=== PATIENT | female | born 1990 | race African-American/Black ===

== ENCOUNTER 2022-06-30 09:54 | Emergency (ER) | payer BC, OTHER ==
[~2022-06-30] VITALS: Ht 157 cm; Wt 77.1 kg
[2022-06-30 10:40] LABS: BASOPHILS % (AUTO) 0 % (0-10); EOSINOPHILS % (AUTO) 0 % (0-10); HEMATOCRIT 36 % (35-52); HEMOGLOBIN 11.2 g/dL (11.5-16.0); LYMPHOCYTES % (AUTO) 32 % (12-44); MEAN CORPUSCULAR HEMOGLOBIN 23 pg (25-34); MEAN CORPUSCULAR HGB CONC 31 g/dL (32-36); MEAN CORPUSCULAR VOLUME 75 fL (80-99); MEAN PLATELET VOLUME 9.4 fL (9.0-12.2); MONOCYTES # (AUTO) 0.3 10^3/uL (0.0-1.0); MONOCYTES % (AUTO) 5 % (0-12); NEUTROPHILS % (AUTO) 63 % (42-75); PLATELET COUNT 342 10^3/uL (130-400); WHITE BLOOD COUNT 6.3 10^3/uL (4.3-11.0)
[2022-06-30 10:54] LABS: ALBUMIN 4.1 GM/DL (3.2-4.5); POTASSIUM 3.7 MMOL/L (3.6-5.0)
[2022-06-30 10:55] LABS: CALCIUM 8.8 MG/DL (8.5-10.1)
[2022-06-30 10:57] LABS: TOTAL PROTEIN 8.7 GM/DL (6.4-8.2)
[2022-06-30 10:59] LABS: BILIRUBIN,TOTAL 0.7 MG/DL (0.1-1.0)
[2022-06-30 11:01] LABS: CREATININE SERUM 0.87 MG/DL (0.60-1.30)
[2022-06-30 11:03] LABS: MAGNESIUM 1.8 MG/DL (1.6-2.4)
--- NOTE | 2022-06-30 11:11 | ED General ---
General Chief Complaint: Abdominal/GI Problems Stated Complaint: NAUSEA/WEAKNESS/SWEATING/SHAKEY Nursing Triage Note: PT REPORTS SHE RECENTLY WENT THROUGH A ENGAGEMENT ENDING AND STARTED DRINKING HEAVILY. PT STATES SHE HAS BEEN DRINKING 8 SHOTS DAILY FOR THE PAST FEW DAYS. PT STATES SHE IS FEELING NAUSEATED, COLD/HOT SWEATS, AND HAVING MUSCLE SPASMS. Source of Information: Patient Exam Limitations: No Limitations (OSBALDO GOSS MED STUDENT) History of Present Illness Date Seen by Provider: Jun 30, 2022 Time Seen by Provider: 11:02 Initial Comments Santy Miller is a 31 yo female who presents for ETOH withdrawal symptoms. Pt has hx of anxiety and ETOH abuse with rehab several years ago. Pt reports she just recently broke off her engagement with her fiance in [place] and moved back here to [place] with her mother last night. Pt reports she has a hx of ETOH and was in rehab with remission. Her fiance began drinking ETOH and this triggered her to drink over the last week. Her stress level is very high with the loss of this relationship and financial struggles. Pt reports for the last week she has been drinking around 8 shots per day. Last drink was around 1400 yesterday. For the last couple of days she has been having nausea, vomiting, sweating and shaking. She also reports muscle cramps/spasms throughout her body, with sustained contraction in her hands following spasm. She feels like she is dehydrated because she has not been able to keep solids or liquids down d/t nausea. Pt denies fever, chills, JUAREZ, blurry vision, blood in stools or vomit, coffee ground emesis. Pt is very willing and motivated to get sober and wants to seek help. She is going to reach out to her former AA sponsor and seek mental health and addiction treatment at [facility]. Timing/Duration: 2-3 Days Associated Systoms: Loss of Appetite, Malaise, Nausea/Vomiting (OSBALDO GOSS MED STUDENT) Allergies and Home Medications Allergies Coded Allergies: No Known Drug Allergies (Unverified , 06/30/22) Patient Home Medication List Home Medication List Reviewed: Yes (LALITHA MARIA MD) Review of Systems Review of Systems Constitutional: No chills, No fever EENTM: No blurred vision, No vision loss Respiratory: No cough, No short of breath Gastrointestinal: abdominal pain (epigastric ); No constipation, No diarrhea; nausea, vomiting Genitourinary: No dysuria, No frequency Musculoskeletal: muscle cramps; No muscle weakness Skin: No lesions, No lumps, No rash Psychiatric/Neurological: Anxiety, Depressed, Emotional Problems; Denies Headache, Denies Numbness, Denies Tingling Hematologic/Lymphatic: No Symptoms Reported Immunological/Allergic: no symptoms reported (OSBALDO GOSS [employer] DENNY) Past Ljznfmf-Igipbf-Eiranp Hx Patient Social History Tobacco Use?: No Substance use?: No Alcohol Use?: Yes Alcohol type: Hard Liquor Alcohol Frequency: Daily Pt feels they are or have been: No (OSBALDO GOSS [employer] STUDENT) Past Medical History Surgery/Hospitalization HX: pmh: pcos (OSBALDO GOSS [employer] DENNY) Physical Exam Vital Signs Vital Signs - First Documented 06/30/22 10:10 Temp 35.9 Pulse 114 Resp 16 B/P (MAP) 156/96 (116) Pulse Ox 100 (LALITHA MARIA MD) Vital Signs Capillary Refill : Less Than 3 Seconds (OSBALDO GOSS [employer] STUDENT) Height, Weight, BMI Height: '" Weight: lbs. oz. kg; 31.00 BMI Method: General Appearance: WD/WN Eyes: Bilateral Eye Normal Inspection, Bilateral Eye PERRL, Bilateral Eye EOMI HEENT: PERRL/EOMI, Other (Dry mucous membranes) Neck: Full Range of Motion, Normal Inspection, Non Tender Respiratory: Chest Non Tender, Lungs Clear, Normal Breath Sounds Cardiovascular: No Murmur, Tachycardia Gastrointestinal: Normal Bowel Sounds, Tenderness (epigastric) Extremity: Non Tender, No Pedal Edema Neurologic/Psychiatric: Alert, Oriented x3, No Motor/Sensory Deficits, Dep ressed Affect Skin: Normal Color, Warm/Dry Lymphatic: No Adenopathy (OSBALDO GOSS [employer] STUDENT) Progress/Results/Core Measures Suspected Sepsis SIRS Temperature: Pulse: 114 Respiratory Rate: 16 Laboratory Tests 06/30/22 10:32: White Blood Count 6.3 Blood Pressure 156 /96 Mean: 116 Laboratory Tests 06/30/22 10:32: Creatinine 0.87, Platelet Count 342, Total Bilirubin 0.7 (OSBALDO GOSS [employer] STUDENT) Results/Orders Lab Results Laboratory Tests Test 06/30/22 10:32 Range/Units White Blood Count 6.3 4.3-11.0 10^3/uL Red Blood Count 4.79 3.80-5.11 10^6/uL Hemoglobin 11.2 L 11.5-16.0 g/dL Hematocrit 36 35-52 % Mean Corpuscular Volume 75 L 80-99 fL Mean Corpuscular Hemoglobin 23 L 25-34 pg Mean Corpuscular Hemoglobin Concent 31 L 32-36 g/dL Red Cell Distribution Width 19.3 H 10.0-14.5 % Platelet Count 342 130-400 10^3/uL Mean Platelet Volume 9.4 9.0-12.2 fL Immature Granulocyte % (Auto) 0 % Neutrophils (%) (Auto) 63 42-75 % Lymphocytes (%) (Auto) 32 12-44 % Monocytes (%) (Auto) 5 0-12 % Eosinophils (%) (Auto) 0 0-10 % Basophils (%) (Auto) 0 0-10 % Neutrophils # (Auto) 4.0 1.8-7.8 10^3/uL Lymphocytes # (Auto) 2.0 1.0-4.0 10^3/uL Monocytes # (Auto) 0.3 0.0-1.0 10^3/uL Eosinophils # (Auto) 0.0 0.0-0.3 10^3/uL Basophils # (Auto) 0.0 0.0-0.1 10^3/uL Immature Granulocyte # (Auto) 0.0 0.0-0.1 10^3/uL Sodium Level 138 135-145 MMOL/L Potassium Level 3.7 3.6-5.0 MMOL/L Chloride Level 101 98-107 MMOL/L Carbon Dioxide Level 16 L 21-32 MMOL/L Anion Gap 21 H 5-14 MMOL/L Blood Urea Nitrogen 4 L 7-18 MG/DL Creatinine 0.87 0.60-1.30 MG/DL Estimat Glomerular Filtration Rate 92 BUN/Creatinine Ratio 5 Glucose Level 101 70-105 MG/DL Calcium Level 8.8 8.5-10.1 MG/DL Corrected Calcium 8.7 8.5-10.1 MG/DL Magnesium Level 1.8 1.6-2.4 MG/DL Total Bilirubin 0.7 0.1-1.0 MG/DL Aspartate Amino Transf (AST/SGOT) 40 H 5-34 U/L Alanine Aminotransferase (ALT/SGPT) 37 0-55 U/L Alkaline Phosphatase 58 40-136 U/L Total Protein 8.7 H 6.4-8.2 GM/DL Albumin 4.1 3.2-4.5 GM/DL Lipase 29 8-78 U/L Serum Test, Qualitative NEGATIVE NEGATIVE Serum Alcohol 122 H <10 MG/DL (LALITHA MARIA MD) My Orders Orders - LALITHA MARIA MD Ed Iv/Invasive Line Start (06/30/22 10:23) Cbc With Automated Diff (06/30/22 10:23) Comprehensive Metabolic Panel (06/30/22 10:23) Lipase (06/30/22 10:23) Hcg,Qualitative Serum (06/30/22 10:23) Magnesium (06/30/22 10:23) Alcohol (06/30/22 10:24) Ondansetron Injection (Zofran Injectio (06/30/22 11:15) Pantoprazole Injection (Protonix Injecti (06/30/22 11:15) Lorazepam Tablet (Ativan Tablet) (06/30/22 11:15) Lactated Ringers (Lr 1000 Ml Iv Solution (06/30/22 12:00) Lactated Ringers (Lr 1000 Ml Iv Solution (06/30/22 11:48) (LALITHA MARIA MD) Medications Given in ED Current Medications Medications Dose Ordered Sig/Cleopatra Route Start Time Stop Time Status Last Admin Dose Admin Lorazepam 0.5 mg ONCE ONCE PO 06/30/22 11:15 06/30/22 11:16 DC 06/30/22 11:42 0.5 MG Ondansetron HCl 8 mg ONCE ONCE IVP 06/30/22 11:15 06/30/22 11:16 DC 06/30/22 11:42 8 MG Pantoprazole 40 mg ONCE ONCE IV 06/30/22 11:15 06/30/22 11:16 DC 06/30/22 11:42 40 MG (LALITHA MARIA MD) Vital Signs/I&O 06/30/22 10:10 Temp 35.9 Pulse 114 Resp 16 B/P (MAP) 156/96 (116) Pulse Ox 100 (LALITHA MARIA MD) Vital Signs/I&O Capillary Refill : Less Than 3 Seconds (OSBALDO GOSS A MED STUDENT) Blood Pressure Mean: 116 Progress Note : Time: 12:46 Progress Note Had lengthy discussion with pt about mental health and addiction treatment options, she is willing to seek these as outpatient tomorrow. She is willing and eager to get treatment for ETOH abuse. Will provide pt with resources. Giving IV fluids, zofran, ativan and protonix now. Pt is feeling less nauseous and anxious. (OSBALDO GOSS A MED STUDENT) Progress Note : Time: 13:08 Progress Note I have reviewed and agree with the resident's HPI as well as ROS and PE. I have performed my own H&P. findings are identical however, patient did admit to me she drank last night (previously stated 2p yesterday). She is motivated for change right now. She is very upset and tearful. Wants to be healthy. She denies SI/HI auditory or visual hallucinations, but does andorse "racing thoughts" and impulsive behaviors especially when drinking. She will be given a small prescription of benzos to help get her through the next 1-2 days. She will be advised to take an over the counter acid investigation specialist. nausea med. referral for [facility] and [facility]. return precautions provided. (LALITHA MARIA MD) Departure Impression Primary Impression: Alcohol abuse Additional Impressions: Nausea and vomiting Qualified Codes: R11.14 - Bilious vomiting Muscle cramps Anxiety and depression Disposition: 01 HOME, SELF-CARE Condition: Improved Departure-Patient Inst. Decision time for Depature: 13:11 (LALITHA MARIA MD) Referrals: NO,LOCAL PHYSICIAN (PCP/Family) Primary Care Physician Patient Instructions: Alcohol Use Disorder (DC), Dehydration, Adult (DC) Add. Discharge Instructions: Reach out TODAY to your AA sponsor for support. Call [facility] [address] [place] [address] Call [facility] [phone] [place] [address] A prescription for ativan will be sent to the pharmacy. This will help with alcohol withdrawal symptoms. Do not drink alcohol on this medication. This m edication can be addictive. Zofran will also be sent to the pharmacy for you, take this when you need it, for nausea. 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 It will help with the pain in your stomach. Drink plenty of water to stay hydrated. Avoid drinking alcohol as it could make your current symptoms worse. Return to the ER if you have worsening of symptoms, blood in your vomit or stool, hallucinations or suicidal thoughts or actions. Scripts Ondansetron (Ondansetron Odt) 4 Mg Tab.rapdis 4 MG PO Q8H PRN for nausea, #12 TAB Prov: LALITHA MARIA MD 06/30/22 Lorazepam (Ativan) 0.5 Mg Tablet 0.5 MG PO Q6H PRN for anxiety, #[address] UNDER TONGUE AND ADD SMALL AMOUNT OF WATER TO DISOLVE TABLET Prov: LALITHA MARIA MD 06/30/22 OSBALDO GOSS MED STUDENT Jun 30, 2022 11:11 LALITHA MARIA MD Jun 30, 2022 13:13
[2022-06-30] MEDS ORDERED: PANTOPRAZOLE 40 MG (PROTONIX) VIAL IV ONE (11:15)
[2022-06-30] MEDS ORDERED: ONDANSETRON 4 MG/2 ML (SDV) Z0FRAN IVP ONE (11:15)
[2022-06-30] MEDS ORDERED: LORazepam 0.5 MG (ATIVAN) TABLET PO ONE (11:15)
[2022-06-30] MEDS ORDERED: LACTATED RINGERS 1,000 ML IV ONE (11:48)
[2022-06-30] MEDS ORDERED: LACTATED RINGERS 1,000 ML IV SCH (12:00)
[2022-06-30] MEDS ORDERED: LORA-404 PO (13:18)
[2022-06-30] MEDS ORDERED: ONDA4TAB11 PO (13:18)
[2022-06-30 13:45] VITALS: BP 138/94
== END 2022-06-30 13:43 | disposition home or self-care (01) ==
LOC: ER 09:58
DX: F41.9 Anxiety disorder, unspecified (principal); F32.A Depression, unspecified; F10.10 Alcohol abuse, uncomplicated; R25.2 Cramp and spasm; Z28.310 Unvaccinated for COVID-19
CPT/HCPCS: 80053; 83690; 83735; 84703; 85025; 99284; G0480; 36415; 80320